=== PATIENT | male | born 1965 | race Caucasian/White ===

== ENCOUNTER 2019-01-08 22:50 | Observation (INO) | payer MEDICARE, SELFPAY ==
[2015-04-04 01:27] VITALS: BMI 24.6
[2019-01-08 23:05] VITALS: BP 157/93; PULSE 95; RESP 20; TEMP 37; O2SAT 95
[2019-01-08 23:26] VITALS: BMI 28.7
[2019-01-08 23:34] VITALS: BMI 28.7
--- NOTE | 2019-01-09 00:52 | HP.PCM_ITS ---
Problem List (1) Acute encephalopathy Status: Acute (2) Infected dental caries Status: Chronic History of Present Illness Date of Admission: 01/08/19 Chief Complaint: confusion The patient is a 53 year old M with reflex sympathetic dystrophy and allergies who presented to the emergency department at [facility] with confusion. At [facility] patient was found to have a white count of 13,000 and his heart rate was elevated at 120. His lactic acid was 2.2. Chest x-ray and urinalysis was unremarkable. Patient was diagnosed with a severe sepsis from tooth infection and was empirically started on vancomycin and Zosyn. Patient received IV fluid bolus. Blood cultures were drawn at [facility]. It was reported that patient has dental abscesses. Past Medical History Past Medical History (Chronic Problems): Chronic Problems Infected dental caries (Chronic) Allergies meloxicam [From Mobic] Allergy (Verified 01/08/19 23:27) Hives Home Medications: Ambulatory Orders Medication Instructions Recorded Azithromycin [Zithromax] 500 mg PO DAILY 04/03/15 Gabapentin [Neurontin] 800 mg PO BID 04/03/15 Mometasone Furoate [Nasonex] 1 spray NASAL BID 04/03/15 Oxycodone HCl/Acetaminophen 2 tab PO BID 04/03/15 [Oxycodone-Acetaminophen 10-325] Surgical History: - - Right leg surgery Lives: Spouse/ Significant Other Smoking Status: Former smoker Alcohol: None - *Family History Maternal History Items: Cancer Paternal History Items: Heart Disease Review of Systems Constitutional: Denies: Chills, Fever, Weight Change HEENT: Denies: Head Aches, Sinus Congestion, Sinus Drainage Cardiovascular: Denies: Chest Pain, Palpitations Respiratory: Denies: Cough, Shortness of breath at rest, Sputum production Gastrointestinal: Denies: Abdominal Pain, Nausea, Vomiting Genitourinary: Denies: Dysuria Musculoskeletal: Denies: Joint Pain, Joint Tenderness Skin: Denies: Rash, Wounds Neurological: Reports: Confusion. Denies: Focal weakness, Numbness, Tingling Psychiatric: Denies: Anxiety, Depression, Homicidal Ideations, Suicidal Ideations Hematologic/ Lymphatic: Denies: Easy Bruising, Easy Bleeding VTE Information - Inpt Only VTE Present on Admission: No VTE Mechan Device Prophylaxis: None VTE Pharm Prophylaxis ordered?: Yes Patient Problems: Active and Suspected Problems Acute encephalopathy (Acute) - Physical Exam General: Alert, Oriented x3, Cooperative HEENT: Atraumatic, PERRLA, EOMI, Normocephalic, Lymphadenopathy, - - Dental caries Neck: Supple, No JVD, Negative Carotid Bruits Lungs: Clear to auscultation, Normal air movement Cardiovascular: Regular rate, No murmurs Abdomen: Bowel Sounds Present, Soft, Non Tender Extremities: No edema, Capillary Refill Less than 3 Seconds, - - Right leg in splint. Skin: No rashes, No breakdown Musculoskeletal: No Tenderness to Palpation of Joints or Extremities Neurological: Cranial nerves II-XII grossly intact Psych/Mental Status: Normal Affect, Appropriate Vital Signs Temp Pulse Resp BP Pulse Ox 98.6 F 95 20 H 157/93 H 95 01/08/19 23:05 01/08/19 23:05 01/08/19 23:05 01/08/19 23:05 01/08/19 23:05 Oxygen Delivery Method Room Air Weight: 96 kg Body Mass Index (BMI) 28.7 Assessment/Plan All Active Problems Acute encephalopathy (Acute) The patient is a 53 year old M with less sympathetic dystrophy and allergies who presented to the emergency department at [facility] with confusion; and with SIRS criteria of leukocytosis and tachycardia as well as with elevated lactic acid of 2.2 consistent with acute encephalopathy. Acute encephalopathy Etiology is unclear at this time. Upon examination dental abscess was not found although patient has many dental caries that appears chronically infected. Patient reported that in the past he had dental abscesses. Will transition patient from vancomycin and Zosyn to clindamycin for now. Patient received IV fluid 30 mL/kg bolus at [facility] ED. We will continue patient on gentle normal saline hydration and repeat lactic acid. Will get TSH; vitamin B12 and ammonia level. Repeat CBC and BMP. BMP at [facility] was unremarkable. Dental infection Appears chronic. We will treat with IV clindamycin. If patient appears stable recommend transitioning to p.o. medicine. Patient wants his tooth pulled out at the Hospital because he is on Medicaid/Medicare and Medicaid/Medicare will not pay for him to see a dentist outpatient. Case management consult. Reflex sympathetic dystrophy Gabapentin and Percocet continued DVT prophylaxis Subcutaneous Lovenox. Code Visit OBSV E&M: 08580 Initial observation care L3
[2019-01-09] MEDS: 0.9% Normal Saline 1,000 ML 100 ML IV (01:07)
[2019-01-09 01:17] VITALS: BP 154/89; PULSE 99; RESP 20; TEMP 36.7; O2SAT 92
[2019-01-09 01:31] LABS: Bedside Glucose 174 mg/dL (70-110)
[2019-01-09 01:43] LABS: Hematocrit 41.4 % (40-54); Hemoglobin 14.3 g/dL (13.0-16.5); Mean Corp Hgb Conc 34.5 g/dL (32-36); Mean Corpuscular Hgb 31.8 pg (27.0-32.0); Mean Corpuscular Volume 92.2 fL (80-94); Mean Platelet Vol. 11.6 fl (6.2-12.0); Platelet Count 124 K/mm3 (150-450); RBC Distribution Width CV 12.3 % (11.6-14.6); RBC Distribution Width SD 41.7 fl (35.1-43.9); Red Blood Count 4.49 M/mm3 (4.6-6.2)
[2019-01-09 02:05] LABS: Anion Gap 6 (5-15); BUN 17 mg/dL (7-18); BUN/Creat Ratio 15.7 RATIO (10-20); Calcium,Total 8.3 mg/dL (8.5-10.1); Chloride 107 mmol/L (98-107); Creatinine, Serum 1.08 mg/dL (0.70-1.30); EST Glomerular Filtration Rate 75 mL/min (>60); Est Glom Filt Rate - Afr Amer 91 mL/min (>60); Estimated Creatinine Clearance 84.83 ml/min; Glucose 152 mg/dL (74-106); Potassium 3.6 mmol/L (3.5-5.1); Sodium Level 137 mmol/L (136-145)
[2019-01-09 02:09] LABS: Lactic Acid 1.8 mmol/L (0.4-2.0)
[2019-01-09 02:17] LABS: Vitamin B12 624 pg/mL (211-911)
[2019-01-09 02:20] LABS: Thyroid Stim Hormone (TSH) 1.83 uIU/mL (0.358-3.74)
[2019-01-09 03:54] VITALS: BP 148/106; PULSE 99; RESP 22; TEMP 36.4; O2SAT 96
[2019-01-09] MEDS: Gabapentin 800 MG Tablet PO (04:42)
[2019-01-09] MEDS: oxyCODONE 5 MG Tablet 10 MG PO ×3 (04:43→13:20)
[2019-01-09 04:51] LABS: Bedside Glucose 137 mg/dL (70-110)
[2019-01-09] MEDS: Acetaminophen 325 MG Tablet 650 MG PO (08:34)
[2019-01-09 08:40] VITALS: BP 155/107; PULSE 99; RESP 16; TEMP 36.7; O2SAT 98
[2019-01-09] MEDS: Enoxaparin 40 MG/0.4 ML Syringe SC (09:19)
[2019-01-09 10:21] LABS: Bedside Glucose 116 mg/dL (70-110)
--- NOTE | 2019-01-09 13:34 | NURSING ---
called [facility] as informed pt asking about blood cultures. Spoke with ER charge nurse, informed 2 sets were collected however both are still pending/in process.
[2019-01-09 14:15] VITALS: BP 154/102; PULSE 87; RESP 16; TEMP 36.7; O2SAT 98
[2019-01-09] MEDS: 0.9% NaCl Peripheral Flush Adult/Peds IV (14:24)
--- NOTE | 2019-01-09 16:12 | DCINST_ITS ---
- Discharge Diagnoses Current Active Problems: Current Active and Chronic Problems Acute encephalopathy (Acute) Infected dental caries (Chronic) You will use the following diet at home:: No restrictions Your food should be the consistency of: Regular Your liquids should be the consistency of: Regular/Thin Discharge Activity: Return to Normal Activity Weight Bearing Status: Full weight bearing Allergies/Adverse Reactions: Allergies meloxicam [From Mobic] Allergy (Verified 01/08/19 23:27) Hives Medications to take at Discharge Gabapentin [Neurontin] 800 mg PO BID 04/03/15 Mometasone Furoate [Nasonex] 1 spray NASAL BID 04/03/15 Oxycodone HCl/Acetaminophen [Oxycodone-Acetaminophen 10-325] 2 tab PO Q4H PRN 04/03/15 Amoxicillin/Potassium Clav [Augmentin 875-125 Tablet] 1 ea PO BIDCM #30 tab 01/09/19 The following prescriptions were given: Amoxicillin/Potassium Clav [Augmentin 875-125 Tablet] 1 ea PO BIDCM #30 tab Transmission Status: Pending to [facility] Primary Care Physician: Teddy Starsk MD [Primary Care Provider] - Please follow up with your Primary Care Physician in: in 2-3 weeks Test Results: Test results from this visit will be discussed in further detail at your follow- up appointment, if applicable.
--- NOTE | 2019-01-09 16:39 | CASEMGMT ---
Social Work Note SW received referral for financial services for pt. Pt has Medicare and no dental coverage. RN updated this worker that pt's son arranged for dentist appointment for pt. SW met with pt, introduced self and role at [facility]. Pt is alert and orientated x4. Pt's son present in room and pt gave this worker permission to speak to him in front of his guest. Pt confirms that he has no dental coverage and that his son made him a dental appointment. OMAR educated pt on [facility] clinic and encouraged pt to call to discuss dental concerns. SW encouraged pt to apply for Medicaid again and see if he qualifies. OMAR provided pt with list of dental providers in [place] that accept Medicaid. Pt denied additional needs or concerns at this time. Lillian Hu CHAR FILTER OPERATOR HELPER, ESTIMATOR AND DRAFTER SUPERVISOR
--- NOTE | 2019-01-11 10:28 | PCM.DC.SUM ---
Discharge Date and Diagnosis Date of Admission: 01/08/19 Date of Discharge: 01/09/19 - Primary Discharge Diagnosis #1 severe sepsis secondary to dental abscess-organism unknown #2 metabolic encephalopathy secondary to severe sepsis #3 multiple dental caries #4 dental abscess - Secondary Discharge Diagnosis Chronic Problems Infected dental caries (Chronic) Hospital Course and Treatment Operations: None Procedures: None Summary of Care Provided: The patient is a 53 year old M directly placed into observation status at [facility] from [facility] after he presented with mental status changes (confusion), patient's white blood cell count was noted to be 13,000 and his lactic acid was 2.2, patient had multiple dental caries and it was felt that he had a dental abscess. Patient was placed in observation status on MedSurg 3, IV clindamycin was administered, patient was reevaluated on 01/09/2019 and showed no signs of confusion or altered mental status. Patient was afebrile and he was felt to be stable for discharge home. On examination he appeared in good health and spirits. Vital signs as documented. Skin warm and dry and without overt rashes. Neck without JVD. Lungs clear. Heart exam notable for regular rhythm, normal sounds and absence of murmurs, rubs or gallops. Abdomen unremarkable and without evidence of organomegaly, masses, or abdominal aortic enlargement. Extremities nonedematous. Neuro: Cranial nerves II through XII are grossly intact, no focal motor deficits were noted, sensation to light touch and pinprick intact. Psych: Patient is alert and oriented x3, he does not appear anxious or depressed On 01/09/2019, patient was seen and examined and felt to be in stable condition for discharge home - Physical Exam Vital Signs Temp Pulse Resp BP Pulse Ox 98.1 F 87 16 154/102 H 98 01/09/19 14:15 01/09/19 14:15 01/09/19 14:15 01/09/19 14:15 01/09/19 14:15 Oxygen Delivery Method Room Air Weight: 96 kg Body Mass Index (BMI) 28.7 Intake and Output for Last 24 Hours 01/09/19 01/10/19 01/11/19 23:59 23:59 23:59 Intake Total 1433 / 1433 Balance 1433 / 1433 Discharge Activity: Return to Normal Activity Weight Bearing Status: Full weight bearing Home Medications: Medications to take at Discharge Gabapentin [Neurontin] 800 mg PO BID 04/03/15 Mometasone Furoate [Nasonex] 1 spray NASAL BID 04/03/15 Oxycodone HCl/Acetaminophen [Oxycodone-Acetaminophen 10-325] 2 tab PO Q4H PRN 04/03/15 Amoxicillin/Potassium Clav [Augmentin 875-125 Tablet] 1 ea PO BIDCM #30 tab 01/09/19 Following Prescrptions Were Given to Patient: Amoxicillin/Potassium Clav [Augmentin 875-125 Tablet] 1 ea PO BIDCM #30 tab Transmission Status: Received by [facility] Primary Care Physician: Teddy Starks MD [Primary Care Provider] - Please follow up with your Primary Care Physician in: in 2-3 weeks Disposition: Home Minutes spent on discharge:: 32 Patient Condition:: Stable Medical Necessity - Tobacco Use Smoking Status: Former smoker Meaningful Use Info Meaningful Use Diagnoses (Choose all that apply): None applicable Code Visit OBSV E&M: 69328 Observation care discharge
== END 2019-01-09 16:55 | disposition home or self-care (01) ==
PROVIDERS: Admitting Provider Hospitalist; Family Provider Family Medicine; PCP Family Medicine; Referring Provider Hospitalist; Visit Provider Internal Medicine
DX: A41.9 Sepsis, unspecified organism (principal); R65.20 Severe sepsis without septic shock; K04.7 Periapical abscess without sinus; G93.41 Metabolic encephalopathy; K02.9 Dental caries, unspecified; Z79.899 Other long term (current) drug therapy; G90.50 Complex regional pain syndrome I, unspecified; Z87.891 Personal history of nicotine dependence
CPT/HCPCS: 36415; 80048; 82140; 82607; 82962; 83605; 84443; 85027; 96361; 96365; 96366; 96372; 97161; 99218; J7030; A4216; G0378; G0379